=== PATIENT | female | born 1980 | race Caucasian/White ===

== ENCOUNTER 2018-12-25 19:00 | Emergency (ER) | payer OTHER ==
--- NOTE | 2018-12-25 19:37 | ER Document Report ---
ED Medical Screen (RME) - General Stated Complaint: RIB PAIN Time Seen by Provider: 12/25/18 19:33 Mode of Arrival: Ambulatory Information source: Patient Notes: 38-year-old female presents emergency department with complaints of right rib pain after falling off her horse on Saturday. Reports that knocked the breath out of her but she got right back up on the horse and rode it. Now complains of right-sided rib pain and abdominal pain when she sucks her stomach in. No pain with palpation, no ecchymosis. Denies fever vomiting diarrhea. Denies pain with void. I have greeted and performed a rapid initial assessment of this patient. A comprehensive ED assessment and evaluation of the patient, analysis of test results and completion of the medical decision making process will be conducted by additional ED providers. Dictation of this chart was performed using voice recognition software; therefore, there may be some unintended grammatical errors. - Related Data Allergies/Adverse Reactions: No Known Allergies Allergy (Unverified 12/25/18 19:33) Physical Exam - Vital signs Vitals: Temp Pulse Resp BP Pulse Ox 99.1 F 72 18 138/88 H 98 12/25/18 19:22 12/25/18 19:22 12/25/18 19:22 12/25/18 19:22 12/25/18 19:22 Course - Vital Signs Vital signs: Temp Pulse Resp BP Pulse Ox 99.1 F 72 18 138/88 H 98 12/25/18 19:22 12/25/18 19:22 12/25/18 19:22 12/25/18 19:22 12/25/18 19:22
[2018-12-25 19:57] LABS: ABSOLUTE BASOPHILS # (AUTO) 0.1 10^3/uL (0.0-0.2); ABSOLUTE EOSINOPHILS # (AUTO) 0.2 10^3/uL (0.0-0.6); ABSOLUTE LYMPHOCYTES (AUTO) 2.6 10^3/uL (0.5-4.7); ABSOLUTE MONOCYTES (AUTO) 0.6 10^3/uL (0.1-1.4); ABSOLUTE NEUT (AUTO) 4.8 10^3/uL (1.7-8.2); BASOPHILS % (AUTO) 0.7 % (0-2); EOSINOPHILS % (AUTO) 2.2 % (0-6); HEMATOCRIT 40.6 % (36.0-47.0); HEMOGLOBIN 13.9 g/dL (12.0-15.5); LYMPHOCYTES % (AUTO) 31.6 % (13-45); MEAN CORPUSCULAR HEMOGLOBIN 30.5 pg (27.0-33.4); MEAN CORPUSCULAR HGB CONC 34.2 g/dL (32.0-36.0); MEAN CORPUSCULAR VOLUME 89 fl (80-97); MONOCYTES % (AUTO) 7.6 % (3-13); PLATELET COUNT 300 10^3/uL (150-450); RED BLOOD COUNT 4.56 10^6/uL (3.72-5.28); RED CELL DISTRIBUTION WIDTH 12.9 % (11.5-14.0); SEGMENTED NEUTROPHILS % (AUTO) 57.9 % (42-78); TOTAL CELLS COUNTED % (AUTO) 100 %; WHITE BLOOD COUNT 8.3 10^3/uL (4.0-10.5)
[2018-12-25 20:09] LABS: ALBUMIN 4.4 g/dL (3.5-5.0); ALKALINE PHOSPHATASE 53 U/L (38-126); ANION GAP 7 (5-19); ASPARTATE AMINO TRANSFERASE 25 U/L (14-36); BILIRUBIN,TOTAL 0.4 mg/dL (0.2-1.3); BLOOD UREA NITROGEN 16 mg/dL (7-20); CALCIUM 9.5 mg/dL (8.4-10.2); CARBON DIOXIDE 27 mmol/L (22-30); CHLORIDE 101 mmol/L (98-107); GLUCOSE 89 mg/dL (75-110); POTASSIUM 4.2 mmol/L (3.6-5.0)
--- NOTE | 2018-12-25 20:20 | RADIOLOGY REPORT (SQ) ---
XR RIBS UNILATERAL WITH CHEST CLINICAL STATEMENT: fell off horse COMPARISON: None FINDINGS: Cardiomediastinal silhouette is within normal limits. There is no focal lung consolidation or pleural effusion. No evidence of pulmonary edema or pneumothorax. Right ribs are intact. IMPRESSION: No acute cardiopulmonary disease. Right ribs are intact.
[2018-12-25 21:10] LABS: APPEARANCE,URINE CLEAR; BILIRUBIN,URINE NEGATIVE (NEGATIVE); COLOR,URINE STRAW; GLUCOSE, URINE NEGATIVE (NEGATIVE); KETONES,URINE 20 mg/dL (NEGATIVE); LEUKOCYTE ESTERASE,URINE NEGATIVE (NEGATIVE); NITRITE,URINE NEGATIVE (NEGATIVE); PROTEIN,URINE NEGATIVE (NEGATIVE); URINE SPECIFIC GRAVITY 1.012; UROBILINOGEN,URINE NEGATIVE mg/dL (<2.0)
[2018-12-25] MEDS ORDERED: MORPHINE SULFATE 10 MG/ML INJ IV ONE (22:08)
--- NOTE | 2018-12-25 22:08 | ER Document Report ---
ED General - General Chief Complaint: Back Pain Stated Complaint: RIB PAIN Time Seen by Provider: 12/25/18 19:33 Primary Care Provider: JODY DAVID PA-C [Primary Care Provider] - Follow up as needed Mode of Arrival: Ambulatory TRAVEL OUTSIDE OF THE [place] IN LAST 30 DAYS: No - HPI Notes: 38-year-old female presents with right-sided rib pain and lower pelvis and abdominal pain. On Saturday afternoon, patient fellProximal a 6 feet from a horse onto hard packed dirt. Sustained an injury to her right flank, right posterior oral medial pelvis and complains of right upper quadrant pain. Sudden onset, moderate intensity. She is concerned because her abdomen feels "swollen",. Achy throbbing pain, sharp right posterior lateral rib pain, worse with deep inspiration. No head injury or loss consciousness. No use of anticoagulants. Moderate intensity, sudden onset. Nonradiating except as described. No other modifying factors, no other associated symptoms, no other provocative or palliative factors. - Related Data Allergies/Adverse Reactions: No Known Allergies Allergy (Unverified 12/25/18 19:33) Past Medical History - General Information source: Patient - Social History Smoking Status: Never Smoker Chew tobacco use (# tins/day): No Frequency of alcohol use: Occasional Drug Abuse: None Family History: Reviewed & Not Pertinent Patient has suicidal ideation: No Patient has homicidal ideation: No - Medical History Notes: No pertinent history Physical Exam - Vital signs Vitals: Temp Pulse Resp BP Pulse Ox 99.1 F 72 18 138/88 H 98 12/25/18 19:22 12/25/18 19:22 12/25/18 19:22 12/25/18 19:22 12/25/18 19:22 - Notes Notes: General: Well-developed, well-nourished HEENT: Normocephalic. No external trauma noted. No mcginnis sign, no hemotympanum. Mucosa is moist. No intraoral trauma. Neck: Midline trachea, no JVD. No midline cervical spine tenderness. No step-off or deformity. Chest: Normal excursion, no accessory muscle use. No gross trauma. Posterior lateral rib pain noted and lateral rib pain approximately ribs 8 through 12. No spontaneous or bruising. Abdomen: Soft, nondistended. Moderatetenderness in the right upper quadrant Pelvis: Stable. Vascular: Strong and symmetric upper and lower extremity pulses. Well-perfused extremities. Motor: Normal tone and power. Neurologic: Alert, nonfocal. Sensation symmetric and intact. Skin: No significant lacerations or purpura. Extremities: No cyanosis. No significant injury noted. Course - Re-evaluation Re-evalutation: 12/25/18 22:07 Patient was evaluated by the [facility] provider prior to my evaluation. Studies / interventions have been ordered by this provider and may still be pending. Available labs reviewed at the time of evaluation showed no acute abnormality, chest x-ray is unremarkable. Given the patient's clinical exam findings, there is substantial increased risk for hepatic or intra-abdominal injury. In light of this, proceed with CT imaging, serial exams and reevaluate. 12/26/18 00:23 Labs reviewed, grossly unremarkable, CT imaging shows no acute abnormality, so exam showed benign abdomen at this time. Patient is discharged home, will follow close with primary care physician, return if worsening. - Vital Signs Vital signs: Temp Pulse Resp BP Pulse Ox 99.1 F 72 18 138/88 H 98 12/25/18 19:22 12/25/18 19:22 12/25/18 19:22 12/25/18 19:22 12/25/18 19:22 - Laboratory Result Diagrams: 12/25/18 19:43 12/25/18 19:43 Laboratory results interpreted by me: 12/25/18 12/25/18 19:43 20:55 Sodium 135.1 L Urine Ketones 20 H Discharge - Discharge Clinical Impression: Contusion of rib on right side Qualifiers: Encounter type: initial encounter Qualified Code(s): S20.211A - Contusion of right front wall of thorax, initial encounter Abdominal pain Qualifiers: Abdominal location: unspecified location Qualified Code(s): R10.9 - Unspecified abdominal pain Condition: Stable Disposition: HOME, SELF-CARE Instructions: Abdominal Pain ([facility]), Rib Contusion ([facility]) Prescriptions: Hydrocodone/Acetaminophen [Vicodin 5-300 mg Tablet] 1 each PO Q6 3 Days #12 tablet Referrals: JODY DAVID PA-C [Primary Care Provider] - Follow up as needed
--- NOTE | 2018-12-25 23:38 | RADIOLOGY REPORT (SQ) ---
CT ABDOMEN PELVIS WITH IV CONTRAST EXAM DATE: 12/25/2018 10:04 PM CDT HISTORY: Fall. Right upper quadrant and flank pain. COMPARISON: None. TECHNIQUE: CT scan of the abdomen and pelvis was performed with IV contrast. This exam was performed according to our departmental dose-optimization program, which includes automated exposure control, adjustment of the mA and/or kV according to patient size and/or use of iterative reconstruction technique. FINDINGS: The lung bases are clear. No pleural or pericardial effusions. There is no hiatal hernia. The liver, spleen, pancreas, gallbladder, adrenal glands, and kidneys are unremarkable. No urinary stones are seen. There is a 1.8 cm right corpus luteum cyst. No small bowel obstruction. The appendix is normal. There is no evidence of diverticulitis. No intraperitoneal free fluid or free air is identified. The aorta is normal caliber. No acute bony findings are seen. There is a chronic deformity of the right femoral shaft from prior fixation. There is no pathologic body wall hernia. IMPRESSION: No acute abdominal or pelvic pathology.
[2018-12-26 00:50] VITALS: BP 131/78
== END 2018-12-26 00:45 | disposition home or self-care (01) ==
LOC: ER 19:00
DX: S20.211A Contusion of right front wall of thorax, initial encounter (principal); M54.9 Dorsalgia, unspecified; R07.81 Pleurodynia; R10.11 Right upper quadrant pain; R10.2 Pelvic and perineal pain; X58.XXXA Exposure to other specified factors, initial encounter
CPT/HCPCS: 99284; 96374; 36415; 85025; 81025; 80053; 81001; 71101; 74177; J2270